=== PATIENT | male | born 1970 | race Caucasian/White ===

== ENCOUNTER 2016-06-24 14:20 | Inpatient (IN) | payer MEDICAID ==
--- NOTE | ~2016-06-24 | HP ---
Unit #: [id number] #: [id number] Patient: MAYI SPICER [id number] [place] [address] [id number] MR#: [id number] NAME: MAYI SPICER ROOM: [facility] Age: 45 Sex: M Admission Date: 06/24/2016 : 1970 Attending Physician: Paco Regan M.D. Admitting Physician: Paco Regan M.D. Primary Care Physician: Generic Doctor Not In System HISTORY AND PHYSICAL HISTORY OF PRESENT ILLNESS Mayi is a 45 year old admitted to [facility] with depression and self-harming behavior. He cut his wrist six days prior to admission. He tells me he was just released from psychiatric unit at another facility. PAST MEDICAL HISTORY 1. Long history of self-harming behavior 2. Seizure disorder 3. Peptic ulcer disease 4. History of kidney stones a. Lithotripsy 5. Degenerative disc disease PAST SURGICAL HISTORY 1. Right shoulder 2. Right forearm after self-inflicted laceration 3. Neck after a self-inflicted laceration ALLERGIES Codeine (itching) SOCIAL HISTORY Smokes one-half packs per day. Drinks alcohol and uses marijuana "socially". FAMILY HISTORY Medically noncontributory. REVIEW OF SYSTEMS CONSTITUTIONAL: No fever or chills. HEENT: Denies any sore throat, ear pain or runny nose. CARDIOVASCULAR: Denies chest pain, irregular heart rhythm or palpitations. CHEST: Denies shortness of breath or cough. No hemoptysis. GASTROINTESTINAL: Denies nausea, vomiting, diarrhea or chronic constipation. ENDOCRINE: Denies history of increased thirst or urination. No recent significant weight loss or gain. GENITOURINARY: Denies dysuria, frequency, or hematuria. SKIN: Denies any rashes. HEMATOLOGIC: Denies history of increased bleeding or bruising. MUSCULOSKELETAL: Denies any hot, swollen joints. No generalized muscle Unit #: [id number] #: [id number] Patient: MAYI SPICER pain. NEUROLOGIC: Denies problems with vision or speech. No frequent, severe headaches. No numbness, tingling or weakness in any extremities. Denies loss of bladder or bowel control. CURRENT MEDICATIONS 1. Seroquel 400 mg q.h.s. 2. Keppra 1000 mg b.i.d. 3. Neurontin 300 mg q.i.d. 4. Motrin p.r.n. 5. Milk of Magnesia p.r.n. 6. Maalox p.r.n. 7. Tylenol p.r.n. 8. Seroquel 100 mg b.i.d. 9. Prozac 60 mg daily PHYSICAL EXAMINATION GENERAL: Alert, very thin, in no apparent distress. VITAL SIGNS: Blood pressure 126/80, heart rate 88, respirations 16, temperature 98.6. WEIGHT: 145 pounds. HEIGHT: 5'7". SKIN: Warm and dry without rash. He has a significant laceration along the left anterior forearm. Sutures are in place. There is good skin approximation without redness, swelling, heat or pus. Significant bruising is noted but this bruising has started to yellow. HEENT: Normocephalic. TMs not viewed. Oral and nasal passages clear. Conjunctivae clear. Pupils equal, round and reactive to light and accommodation. Extraocular movements intact. NECK: Supple without lymphadenopathy or thyromegaly. EART: Regular rate and rhythm without murmur. LUNGS: Clear. ABDOMEN: Soft, nontender. : Not done. EXTREMITIES: No evidence of cyanosis, clubbing or edema. Moves all extremities without focal deficit. Neurovascular intact in his left hand, wrist and forearm. NEUROLOGICAL: Grossly within normal limits. Cranial Nerves: II: Visual del castillo are intact. III, IV AND : Extraocular movements are intact. Pupils are equal, round and reactive to light. V: Facial sensation is grossly normal. VII: Facial movements and expression are normal. VIII: Auditory acuity grossly intact. IX, X: Uvula is midline. Phonation is normal. XI: Patient shrugs shoulders and turns head normally. XII: Tongue protrudes in the midline. Sensory and Motor Function: Sensory and motor sensation is grossly normal. Motor: moves all extremities well. Coordination: Gait is normal. Deep Tendon Reflexes: Intact. IMPRESSION 1. Self-inflicted laceration to his left forearm six days prior to this admission. 2. Seizure disorder. RECOMMENDATIONS PSYCHIATRIC: Per psychiatrist. MEDICAL: Unit #: [id number] #: [id number] Patient: MAYI SPICER 1. I see no contraindications to participating in facility's activities. 2. Sutures to be removed by hand clinic after discharge. 3. Continue Keppra 1000 mg b.i.d. MEDICAL PROGNOSIS Good. MEDICAL CONDITION Stable. Dictated by... Agueda Meraz P.A.-C. for Raudel Lazcano/susie TD: 06/24/2016 20:07 JOB #: [id number] HISTORY AND PHYSICAL X Agueda Meraz HISTORY AND PHYSICAL
--- NOTE | ~2016-06-24 | PA ---
Unit #: [id number] #: [id number] Patient: MAYI SPICER [id number] [facility] [address] [place] [address] [id number] I MR#: [id number] NAME: MAYI SPICER ROOM: [facility] Age: 45 Sex: M Admission Date: 06/24/2016 : 1970 Date of Assessment: 06/25/2016 Attending Physician: Paco Regan M.D. Admitting Physician: Paco Regan M.D. Primary Care Physician: Generic Doctor Not In System PSYCHIATRIC ASSESSMENT IDENTIFYING INFORMATION The patient is a 45-year-old white male, admitted and transferred from [facility] where he had been taken for hand surgery appointment. INFORMANT(S) Patient, reliability is good. CHIEF COMPLAINT "There was a mix up at the hand surgery place." HISTORY OF PRESENT ILLNESS The patient is a 45-year-old white male, who is six days status post self-inflicted wrist laceration. He had spent the last six days at [facility] but was discharged from that facility with a combination of Seroquel and Effexor. He was transported to this facility and was to be seen by hand surgery but was told that his appointment was on another date. [facility] voicing positive suicidal ideation without specific plan stating thoughts of hurting himself again secondary to his frustration with his hand appointment. When seen today the patient is contrite over this episode and is pleasant and cooperative and is denying suicidal ideation. he does not report a specific stressor which lead him to cut his write recently. The patient does report that he is unhappy living with his mother stating at the age of 45 he should be able to "do better." The patient denies abuse of alcohol or other psychoactive substances. He currently denies suicidal or homicidal ideation and has requested discharge from the hospital. PAST PSYCHIATRIC HISTORY Is as above. PAST MEDICAL HISTORY Is significant for the aforementioned wrist laceration and the patient also suffers from degenerative disc disease, and seizure disorder. MEDICATIONS 1. Keppra 2. Keflex 3. Bactroban 4. Naprosyn 5. Seroquel 6. Effexor Unit #: [id number] #: [id number] Patient: AMYI SPICER ALLERGIES Codeine. FAMILY HISTORY Noncontributory. SOCIAL HISTORY The patient lives with his mother. He completed "some college." He reports no use of alcohol, tobacco, or street drugs. MENTAL STATUS EXAM At this time reveals the patient to be a thin white male, appearing somewhat older than his stated age. He is in no apparent physical distress at the time of the examination. He is awake, alert, and oriented in all spheres. His mood is mildly dysphoric. His affect is constricted. Speech is generally relevant and coherent. There are no gross deficits to memory or cognition noted. Intelligence is judged to be in the average range based on fund of knowledge. The patient is cooperative throughout the interview. He is currently denying suicidal or homicidal ideation or psychotic features. Judgment and insight appear to be intact. ASSETS Motivation for change. LIABILITIES Lack of resources. DIAGNOSTIC IMPRESSION Vaiden I: major depressive disorder, recurrent, moderate. Vaiden II: Vaiden III: Degenerative disc disease. Seizure disorder. Status post self-inflicted wrist laceration. TREATMENT PLAN The patient is today denying suicidal ideation and expresses contrition concerning hospitalization attributing his statements to his frustration over his missed communication regarding his hand surgery appointment. Arrangements have been made for the patient to follow up with hand surgery and the patient is requesting discharge today. His discharge will be so ordered. Dictated by... Paco Regan M.D. Priscilla TD: 06/25/2016 13:12 JOB #: [id number] Unit #: [id number] #: [id number] Patient: MAYI SPICER PSYCHIATRIC ASSESSMENT Page 1 of 1 X Paco Regan MD PSYCHIATRIC ASSESSMENT
--- NOTE | ~2016-06-24 | DS ---
Unit #: [id number] #: [id number] Patient: MAYI SPICER [id number] [place] [address] [id number] I MR#: [id number] NAME: MAYI SPICER ROOM: [facility] Age: 45 Sex: M Admission Date: 06/24/2016 : 1970 Discharge Date: 06/25/2016 Attending Physician: Paco Regan M.D. Primary Care Physician: Generic Doctor Not In System DISCHARGE SUMMARY REASON FOR ADMISSION The patient is a 45-year-old white male, just discharged from [facility] 6 days after a self-inflicted wrist laceration. HOSPITAL COURSE The patient was admitted to the [address] [place] [address] and placed on suicide precautions. He was continued on home medications including Seroquel, Keppra, and Effexor. Keflex was discontinued as the patient had completed his course of this medication. The patient was pleasant and cooperative and stated to this physician that he had expressed suicidal ideation only after have frustrated with the miscommunication regarding his hand surgery appointment. He requested discharge on 06/26/2015 and it was so ordered. FINAL DIAGNOSES Major depressive disorder, recurrent, moderate; status post self-inflicted wrist laceration; seizure disorder; degenerative disk disease. DISPOSITION ON DISCHARGE The patient is discharged on the following medications; Effexor XR 112.5 mg daily for depression, Seroquel 100 mg b.i.d. and 200 mg at h.s. for mood stabilization, Keppra 1500 mg b.i.d. for seizure disorder. DISCHARGE INSTRUCTIONS No dietary or physical restrictions were placed on the patient at the time of discharge. FOLLOWUP Followup will take place through the auspices of community mental health resources in the [facility]. PROGNOSIS The patient's prognosis is considered fair. Dictated by... Paco Regan M.D. ORLY/norberto TD: 06/26/2016 01:15 JOB #: [id number] Unit #: [id number] #: [id number] Patient: MAYI SPICER DISCHARGE SUMMARY Page 1 of 1 X Paco Regan MD DISCHARGE SUMMARY
[2016-06-25 09:36] LABS: BASOPHIL% 0.5 % (0-2.5); EOSINOPHIL# 0.1 X10e3 (0-0.7); EOSINOPHIL% 1.5 % (0.0-7.0); HEMATOCRIT 41.8 % (38.0-50.0); HEMOGLOBIN 13.6 gm/dL (13.0-16.0); LYMPHOCYTE# 1.6 X10e3 (1.0-3.5); LYMPHOCYTE% 25.4 % (17.0-45.0); MEAN CELL VOLUME 91.3 FL (83-96); MEAN CORPUSCULAR HEMOGLOBIN 29.8 PG (28-34); MEAN CORPUSCULAR HGB CONC 32.6 g/dL (30-36); MEAN PLATELET VOLUME 7.8 FL (6.5-11.5); MONOCYTE# 0.6 X10e3 (0-1.0); MONOCYTE% 8.9 % (3.0-12.0); NEUTROPHIL# 4.1 X10e3 (1.5-7.1); NEUTROPHIL% 63.7 % (40-75); PLATELET COUNT 317 X10e3 (140-420); RED BLOOD COUNT 4.58 X10e (3.90-5.60); WHITE BLOOD COUNT 6.4 X10e3 (4.0-10.5)
[2016-06-25 09:39] LABS: DIFF IND NO
[2016-06-25 10:07] LABS: THYROID STIMULATING HORMONE 0.41 uIU/ml (0.34-5.60)
[2016-06-25 10:12] LABS: ALBUMIN SERUM 3.4 g/dL (3.5-5.0); ALKALINE PHOSPHATASE 95 U/L (32-92); ALT (SGPT) 19 U/L (10-40); AST (SGOT) 18 U/L (10-42); BILIRUBIN,TOTAL 0.3 mg/dL (0.2-2.0); BLOOD UREA NITROGEN 11 mg/dL (9-23); BUN/CREATININE RATIO 12.22; CALCIUM SERUM 9.4 mg/dL (8.4-10.2); CARBON DIOXIDE 30 mmol/L (22-31); CHLORIDE 104 mmol/L (100-111); CREATININE SERUM 0.9 mg/dL (0.6-1.4); GLOM FILT RATE Estimated ABOVE60 mL/min (>60); GLUCOSE FASTING 91 mg/dL (70-110); POTASSIUM 4.6 mmol/L (3.5-5.1); PROTEIN TOTAL SERUM 6.3 g/dL (6.0-8.3); SODIUM 140 mmol/L (135-145)
[2016-06-25 10:13] LABS: FREE THYROXIN (T4) 0.56 ng/dL (0.58-1.64)
== END 2016-06-25 14:45 | disposition home or self-care (01) | DRG 885 ==
LOC: P1E 14:20 → P2L 18:54
PROVIDERS: Specialist
DX: F33.1 Major depressive disorder, recurrent, moderate (principal); G40.909 Epilepsy, unspecified, not intractable, without status epilepticus; F17.210 Nicotine dependence, cigarettes, uncomplicated; Z87.11 Personal history of peptic ulcer disease; Z87.442 Personal history of urinary calculi; Z87.898 Personal history of other specified conditions; Z91.5 Personal history of self-harm
CPT/HCPCS: 80053; 84439; 84443; 85025